=== PATIENT | male | born 1990 | race Caucasian/White ===

== ENCOUNTER 2017-05-14 18:35 | Inpatient (IN) | payer MEDICAID ==
[~2017-05-14] VITALS: Ht 167.6 cm; Wt 68.1 kg
[2017-05-14 21:08] LABS: BASOPHIL % 0.4 % (0-2); PLATELET COUNT 156 x10^3mcL (130-400)
[2017-05-14 21:12] LABS: RED CELL DISTRIBUTION WIDTH 19.2 % (11.5-14.5)
[2017-05-14 22:27] LABS: CARBON DIOXIDE 29.6 mmol/L (21-32); CHLORIDE SERUM 97 mmol/L (98-107); CREATININE SERUM 0.8 mg/dL (0.7-1.3); GFR1 > 60 mL/min; GLUCOSE SERUM 96 mg/dL (74-106); POTASSIUM SERUM 3.2 mmol/L (3.5-5.1); SODIUM SERUM 134 mmol/L (136-145)
[2017-05-14 22:30] LABS: ALKALINE PHOSPHATASE 239 U/L (46-116); ALT/SGPT 122 U/L (16-63); AST/SGOT 243 U/L (15-37); BILIRUBIN TOTAL 0.7 mg/dL (0.20-1.00); LIPASE 102 IU/L (73-393)
[2017-05-14 22:31] LABS: ALBUMIN 2.8 g/dL (3.4-5.0); AMYLASE 23 U/L (25-115); TOTAL PROTEIN, SERUM 9.2 g/dL (6.4-8.2)
[2017-05-15] VITALS (14 sets, daily range): BP systolic 108–150; BP diastolic 55–102
[2017-05-15 01:11] LABS: UA SPECIFIC GRAVITY 1.025 (1.005-1.035); microscopic required? YES; urine erythrocyte NEGATIVE (NEGATIVE)
[2017-05-15] MEDS ORDERED: EPZICOM1 TAB (02:53)
[2017-05-15] MEDS ORDERED: MOT800 PO (02:53)
[2017-05-15 03:01] LABS: RED BLOOD CELLS 4.45 M/mm3 (4.52-5.90)
[2017-05-15 03:03] LABS: MAGNESIUM 2.1 mg/dL (1.8-2.4); PHOSPHOROUS 3.9 mg/dL (2.5-4.9)
[2017-05-15 03:07] LABS: T3 TOTAL 0.8 ng/mL
[2017-05-15 03:10] LABS: FREE T4 1.22 ng/dL (0.76-1.46); FREE THYROXINE INDEX 2.8 ug/dL (1.4-4.5)
[2017-05-15 04:07] LABS: CHOLESTEROL/HDL RATIO 8.7
[2017-05-15 04:17] LABS: TOTAL IRON BINDING CAPACITY 336 ug/dL (250-450)
[2017-05-15 04:31] LABS: AMPHETAMINE QUAL UR NONE DETECTED (NEG <=1000)
[2017-05-15 04:35] LABS: IRON 31 ug/dL (65-170)
[2017-05-15 04:50] LABS: BASOPHIL % 0.6 % (0-2); PLATELET COUNT 144 x10^3mcL (130-400)
[2017-05-15 04:51] LABS: RED CELL DISTRIBUTION WIDTH 18.6 % (11.5-14.5)
[2017-05-15 04:55] LABS: CALCIUM 7.7 mg/dL (8.5-10.1); CARBON DIOXIDE 27.2 mmol/L (21-32); CHLORIDE SERUM 99 mmol/L (98-107); GFR1 > 60 mL/min; GLUCOSE SERUM 90 mg/dL (74-106); MAGNESIUM 1.9 mg/dL (1.8-2.4); PHOSPHOROUS 3.6 mg/dL (2.5-4.9); POTASSIUM SERUM 3.2 mmol/L (3.5-5.1); SODIUM SERUM 135 mmol/L (136-145)
[2017-05-15 05:09] LABS: rbc morphology (normal/abnorm) ABNORMAL (NORMAL)
[2017-05-16 05:01] VITALS: BP 111/62
[2017-05-16 06:35] LABS: BASOPHIL % 0.2 % (0-2)
[2017-05-16 06:39] LABS: PLATELET COUNT 106 x10^3mcL (130-400); RED CELL DISTRIBUTION WIDTH 19.4 % (11.5-14.5)
[2017-05-16 06:44] LABS: CALCIUM 7.4 mg/dL (8.5-10.1); CARBON DIOXIDE 26.8 mmol/L (21-32); CHLORIDE SERUM 102 mmol/L (98-107); CREATININE SERUM 0.7 mg/dL (0.7-1.3); GFR1 > 60 mL/min; GLUCOSE SERUM 83 mg/dL (74-106); POTASSIUM SERUM 3.3 mmol/L (3.5-5.1); SODIUM SERUM 134 mmol/L (136-145)
[2017-05-16 08:00] LABS: BILIRUBIN DIRECT 0.61 mg/dL (0.0-0.2); BILIRUBIN TOTAL 0.8 mg/dL (0.20-1.00); TOTAL PROTEIN, SERUM 7.1 g/dL (6.4-8.2)
[2017-05-16 08:02] LABS: ALBUMIN 1.9 g/dL (3.4-5.0)
[2017-05-16 09:12] VITALS: BP 117/75
[2017-05-16 16:54] VITALS: BP 116/82
[2017-05-16 21:45] VITALS: BP 117/75
[2017-05-17 06:02] VITALS: BP 108/50
[2017-05-17 06:48] LABS: ALKALINE PHOSPHATASE 282 U/L (46-116); ALT/SGPT 67 U/L (16-63); AST/SGOT 182 U/L (15-37); BILIRUBIN TOTAL 1.02 mg/dL (0.20-1.00); CALCIUM 7.5 mg/dL (8.5-10.1); CARBON DIOXIDE 26.2 mmol/L (21-32); CHLORIDE SERUM 102 mmol/L (98-107); CREATININE SERUM 0.7 mg/dL (0.7-1.3); GFR1 > 60 mL/min; GLUCOSE SERUM 76 mg/dL (74-106); POTASSIUM SERUM 3.6 mmol/L (3.5-5.1); SODIUM SERUM 133 mmol/L (136-145); TOTAL PROTEIN, SERUM 7.3 g/dL (6.4-8.2)
[2017-05-17 06:58] LABS: BASOPHIL % 0.3 % (0-2)
[2017-05-17 07:00] LABS: PLATELET COUNT 102 x10^3mcL (130-400); RED CELL DISTRIBUTION WIDTH 19.9 % (11.5-14.5)
[2017-05-17 09:42] VITALS: BP 109/61
[2017-05-17 11:47] VITALS: BP 101/57
[2017-05-17 13:36] VITALS: BP 104/54
[2017-05-17 17:36] VITALS: BP 102/50
[2017-05-17 20:30] VITALS: BP 104/56
[2017-05-18 10:18] LABS: RHEUMATOID ARTHRITIS FACTOR <10.0 IU/mL (0.0-13.9)
[2017-05-18] MEDS ORDERED: AMOXICILLIN500 M1 PO (10:52)
[2017-05-18] MEDS ORDERED: PRE15 PO (10:53)
[2017-05-18] MEDS ORDERED: BIAXIN FILMTAB500 MG PO (10:53)
== END 2017-05-17 23:45 | disposition left against medical advice (07) | DRG 241 ==
LOC: ED 18:35 → DU 05-15 02:14 → MU 05-15 02:14 → DU 05-15 02:45 → MU 05-16 08:54
PROVIDERS: Emergency Medicine; Internal Medicine Gastroenterology; ADMIT Family Medicine
PROC: 0DB68ZX Excision of Stomach, Via Natural or Artificial Opening Endoscopic, Diagnostic (ICD-10-PCS; principal; 2017-05-15 12:30)
DX: K25.9 Gastric ulcer, unspecified as acute or chronic, without hemorrhage or perforation (principal); N17.0 Acute kidney failure with tubular necrosis; E43 Unspecified severe protein-calorie malnutrition; A04.8 Other specified bacterial intestinal infections; K70.30 Alcoholic cirrhosis of liver without ascites; E87.1 Hypo-osmolality and hyponatremia; D50.9 Iron deficiency anemia, unspecified; F10.10 Alcohol abuse, uncomplicated; K44.9 Diaphragmatic hernia without obstruction or gangrene; N39.0 Urinary tract infection, site not specified; E86.0 Dehydration; E87.6 Hypokalemia; K80.20 Calculus of gallbladder without cholecystitis without obstruction; Z68.24 Body mass index [BMI] 24.0-24.9, adult; Z79.1 Long term (current) use of non-steroidal anti-inflammatories (NSAID)
CPT/HCPCS: 43235; 83880; 84439; 86308; 86431; C9113; G0480; J0696; J1200; J1610; J1750; J1885; J2250; J2270; J2310; J2405; J2543; J2765; J3010; J3490; J7030; Q0092

== ENCOUNTER 2017-05-19 14:21 | Inpatient (IN) | payer MEDICAID ==
[~2017-05-19] VITALS: Ht 167.6 cm; Wt 68.5 kg
[~2017-05-19 14:21] MED LIST: AMOXICILLIN500 M1 PO; BIAXIN FILMTAB500 MG PO; EPZICOM1 TAB; MOT800 PO; PRE15 PO
[2017-05-19 15:14] LABS: PLATELET COUNT 134 x10^3mcL (130-400)
[2017-05-19 15:22] LABS: CALCIUM 7.8 mg/dL (8.5-10.1); CARBON DIOXIDE 25.2 mmol/L (21-32); CHLORIDE SERUM 106 mmol/L (98-107); CREATININE SERUM 0.8 mg/dL (0.7-1.3); GFR1 > 60 mL/min; GLUCOSE SERUM 96 mg/dL (74-106); POTASSIUM SERUM 3.3 mmol/L (3.5-5.1); SODIUM SERUM 140 mmol/L (136-145)
[2017-05-19 15:26] LABS: ALKALINE PHOSPHATASE 331 U/L (46-116); ALT/SGPT 66 U/L (16-63); AST/SGOT 142 U/L (15-37); BILIRUBIN TOTAL 1.3 mg/dL (0.20-1.00)
[2017-05-19 15:27] LABS: ALBUMIN 2.2 g/dL (3.4-5.0); TOTAL PROTEIN, SERUM 8.4 g/dL (6.4-8.2)
[2017-05-19 15:28] LABS: RED CELL DISTRIBUTION WIDTH 19.7 % (11.5-14.5)
[2017-05-19 15:33] LABS: UA SPECIFIC GRAVITY 1.025 (1.005-1.035); microscopic required? YES; urine erythrocyte NEGATIVE (NEGATIVE)
[2017-05-19 15:41] LABS: BAND NEUTROPHIL 0 % (0-10); BASOPHIL 0 % (0-2); MONOCYTE 6 % (0-7); SEGMENTED NEUTROPHILS 83 % (37-75)
[2017-05-19 15:42] LABS: rbc morphology (normal/abnorm) ABNORMAL (NORMAL)
[2017-05-19 18:31] LABS: AMPHETAMINE QUAL UR NONE DETECTED (NEG <=1000)
[2017-05-19 18:42] LABS: PHOSPHOROUS 3.4 mg/dL (2.5-4.9)
[2017-05-19 18:46] LABS: CHOLESTEROL/HDL RATIO 20.6
[2017-05-19 18:59] LABS: FREE T4 1.16 ng/dL (0.76-1.46); FREE THYROXINE INDEX 2.5 ug/dL (1.4-4.5); T4(THYROXINE) 7.6 ug/dL (4.7-13.3)
[2017-05-19 20:44] VITALS: BP 135/80
[2017-05-19 21:03] LABS: T3 TOTAL 0.73 ng/mL
[2017-05-19 21:13] VITALS: BP 135/80
[2017-05-20 05:14] VITALS: BP 118/72
[2017-05-20 07:06] LABS: CALCIUM 7.4 mg/dL (8.5-10.1); CARBON DIOXIDE 22.9 mmol/L (21-32); CHLORIDE SERUM 110 mmol/L (98-107); CREATININE SERUM 0.6 mg/dL (0.7-1.3); GFR1 > 60 mL/min; GLUCOSE SERUM 86 mg/dL (74-106); POTASSIUM SERUM 3.9 mmol/L (3.5-5.1); SODIUM SERUM 141 mmol/L (136-145)
[2017-05-20 08:05] LABS: PLATELET COUNT 123 x10^3mcL (130-400); RED CELL DISTRIBUTION WIDTH 20.2 % (11.5-14.5)
[2017-05-20 10:10] VITALS: BP 133/81
[2017-05-20 11:15] LABS: BAND NEUTROPHIL 4 % (0-10); BASOPHIL 0 % (0-2); METAMYELOCTE 1 % (0-2); MONOCYTE 9 % (0-7); SEGMENTED NEUTROPHILS 71 % (37-75)
[2017-05-20 11:16] LABS: rbc morphology (normal/abnorm) ABNORMAL (NORMAL)
[2017-05-20 11:17] LABS: target cell (codocyte) 1+
[2017-05-20] MEDS ORDERED: PEPTO BISM262 MG/11 PO (15:12)
== END 2017-05-20 13:10 | disposition left against medical advice (07) | DRG 241 ==
LOC: ED 14:21 → DU 17:14
PROVIDERS: Emergency Medicine; ADMIT Family Medicine
DX: K29.70 Gastritis, unspecified, without bleeding (principal); N17.0 Acute kidney failure with tubular necrosis; E43 Unspecified severe protein-calorie malnutrition; A04.8 Other specified bacterial intestinal infections; E83.51 Hypocalcemia; E86.0 Dehydration; D50.9 Iron deficiency anemia, unspecified; F10.10 Alcohol abuse, uncomplicated; E87.6 Hypokalemia; E78.5 Hyperlipidemia, unspecified; G44.209 Tension-type headache, unspecified, not intractable; Z68.24 Body mass index [BMI] 24.0-24.9, adult
CPT/HCPCS: 83880; 84439; 87804; G0480; J0696; J1885; J2405; J3480; J7030

== ENCOUNTER 2020-01-15 01:24 | Emergency (ER) | payer SELFPAY ==
[~2020-01-15] VITALS: Ht 167.6 cm; Wt 67.7 kg
[~2020-01-15 01:24] MED LIST changes: +PEPTO BISM262 MG/11 PO
[2020-01-15 01:37] VITALS: Ht 167.6 cm; Wt 67.7 kg
[2020-01-15 05:43] VITALS: BP 120/70
== END 2020-01-15 05:44 | disposition home or self-care (01) ==
LOC: ED 01:24
DX: S01.511A Laceration without foreign body of lip, initial encounter (principal); X58.XXXA Exposure to other specified factors, initial encounter; Y93.89 Activity, other specified; Y92.89 Other specified places as the place of occurrence of the external cause; Y99.8 Other external cause status
CPT/HCPCS: 90715; J2001